=== PATIENT | male | born 1975 | race Caucasian/White ===

== ENCOUNTER 2017-02-23 16:05 | Observation (INO) ==
[2017-02-23] MEDS: dilTIAZem HCl 100 MG in D5% in Water 50 ML IVC SCH (19:00)
[2017-02-23] MEDS ORDERED: 0.9 % Sodium Chloride 500 ML ONE (21:16)
[2017-02-23] MEDS ORDERED: Naloxone 0.4 MG/ML INJ IVP PRN (21:17)
[2017-02-23] MEDS ORDERED: Acetaminophen 325 MG TABLET PO PRN (21:17)
[2017-02-23] MEDS ORDERED: Ondansetron 4 MG/2 ML VIAL IVP PRN (21:17)
[2017-02-23 21:58] LABS: Activated Partial Thrombo Time 112.8 Seconds (26.0-36.0)
[2017-02-23 22:33] LABS: Heparin anti-factor XA UFH 0.66 IU/mL (0.30-0.70)
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
[2017-02-23] MEDS ORDERED: *HR* Heparin 5,000 UNIT/ML VIAL IVP PRN ×2 (22:43)
[2017-02-23] MEDS ORDERED: Heparin 25,000 UNIT/500 ML D5W 25,000 UNIT/500 ML BAG IVC SCH (22:45)
[2017-02-23 23:21] LABS: INR 1.1; Prothrombin Time 11.3 Seconds (9.4-12.1)
[2017-02-24] MEDS: dilTIAZem HCl 100 MG in D5% in Water 50 ML IVC SCH (03:19)
[2017-02-24 06:03] LABS: Hemoglobin A1C 5.1 %
[2017-02-24 06:06] LABS: Basophils # 0.1 K/mcL (0.0-0.2); Basophils % 0.7 %; Eosinophils # 0.3 K/mcL (0.0-0.6); Eosinophils % 3.6 %; Hematocrit 42.1 % (37.5-50.1); Hemoglobin 14.1 g/dL (12.9-16.9); Immature Granulocytes % 0.3 % (0-4); Lymphocytes # 3.5 K/mcL (0.6-4.6); Lymphocytes % 47.9 %; Mean Corpuscular HGB Conc 33.5 g/dL (31.6-35.5); Mean Corpuscular Hemoglobin 29.8 pg (28.0-33.3); Mean Platelet Volume 10.8 fL (9.4-12.4); Monocytes # 0.6 K/mcL (0.0-1.3); Monocytes % 7.8 %; Neutrophils # 2.9 K/mcL (1.6-8.9); Platelet Count 201 K/mcL (140-400); Red Blood Count 4.73 M/mcL (4.19-5.50); Segmented Neutrophils % 39.7 %
[2017-02-24 10:04] LABS: BUN/Creatinine Ratio 15 (6-26); Blood Urea Nitrogen 13 mg/dL (6-20); Carbon Dioxide 22 mEq/L (23-29); Chloride 106 mEq/L (98-107); Potassium 4.4 mEq/L (3.5-5.1); Sodium 136 mEq/L (136-145); eGFR For African Americans > 60 (> 60)
[2017-02-24 10:05] LABS: Alanine Aminotransferase 23 Units/L (7-52); Albumin 3.8 g/dL (3.5-5.7); Albumin/Globulin Ratio 1.5 (1.1-2.2); Alkaline Phosphatase 60 Units/L (34-104); Aspartate Amino Transferase 23 Units/L (13-39); Bilirubin,Total 0.5 mg/dL (0.3-1.0); Calcium 8.7 mg/dL (8.6-10.3); Chol/HDL Ratio 6.3 (0-4.9); Cholesterol 238 mg/dL (< 200); Globulin 2.5 g/dL (2.4-3.5); Glucose 97 mg/dL (70-105); HDL Cholesterol 38 mg/dL (40-59); LDL Cholesterol,Calculated 167 mg/dL (0-99); Magnesium 2.1 mg/dL (1.6-2.6); Osmolality,Calculated 282 (280-300); Total Protein 6.3 g/dL (6.4-8.9); Triglycerides 164 mg/dL (< 150); eGFR For Non-African Americans > 60 (> 60)
[2017-02-24 11:40] VITALS: BP 129/82
[2017-02-24] MEDS ORDERED: Diltiazem CD (24hr) 120 MG CAPSULE PO SCH (12:45)
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
[2017-02-25] MEDS ORDERED: Aspirin 81 MG TAB.CHEW PO SCH (09:00)
== END 2017-02-24 15:51 | disposition home or self-care (01) | DRG 201 ==
LOC: 2NNU 17:24 → INTOOBSV 17:24
PROVIDERS: ADMIT Internal Medicine; ATTEND Internal Medicine

== ENCOUNTER 2017-03-10 17:37 | Inpatient (IN) ==
[2017-03-10] MEDS ORDERED: Naloxone 0.4 MG/ML INJ IVP PRN (22:54)
[2017-03-10] MEDS ORDERED: Acetaminophen 325 MG TABLET PO PRN (22:54)
--- NOTE | 2017-03-10 23:17 | Internal Med History&Physical ---
Date of Encounter: 03/10/17 Time of Encounter: 21:00 Assessment and Plan (1) Atrial fibrillation with RVR Current visit: Yes Status: Acute Pt has Hx of A Fib/A Flutter, he was seen by cardiology on 02/24/17 on last hospitalization, note reviewed. - Hr is well controlled now on cardizem drip, still A Fib. Pt is asymptomatic. Cont cardizem drip, switch to po in AM. - Pt said he was scheduled to see EP as outpatient by the end of this month. - Cont cardiac monitoring. - K 3.8, Mg 2.1. Will repeat K, Mg, and check TSH in AM - CHADS-VASC2 score 0, on ASA for CVA prophylaxis. (2) DVT prophylaxis Current visit: No Status: Acute Pt is young and ambulating well. No AC placed Internal Medicine - H&P: HPI Chief complaint: Increased HR Admitted From: Home Plans for Post Hospital Care: Home History of present illness: Mr. Das is a 41 year old male with Hx of A Fib transferred from [facility] for A Fib RVR. Pt found tachycardia when he measure BP at home. Denies feeling of palpitation. Pt denies CP, SOB, Abd pain, nausea/vomiting, diarrhea. He denies fever, cough, or runny nose. Pt has similiar condition and was admitted in our hospital about 2 wks ago. Past Med Surg Social Fam HX - Past Medical History Medical history: atrial fibrillation Psychiatric history: no psych history - Past Surgical History Surgical History: orthopedic, other, other - Social History Smoking Status: Former smoker Smokeless Tobacco Status: No Alcohol use: occasionally Drug use: none - Family History Father Family Member Ethnicity: Non- Living Status: Still Living Hx Family Cardiac Disorders: Yes (HTN, HLD) Mother Family Member Ethnicity: Non- Living Status: Hx Family Cardiac Disorders: Yes (Multiple strokes, HTN) Brother Family Member Ethnicity: Non- Living Status: Still Living Hx Family HEENT Disorders: Yes (Occular blindness in one eye) Sister Family Member Ethnicity: Non- Living Status: Still Living Internal Medicine - H&P: Meds Aspirin 81 mg PO DAILY #30 tab.chew 02/24/17 [Rx] Diltiazem CD (24hr) [Cardizem CD] 220 mg PO DAILY 03/10/17 [History] 3 Allergy/AdvReac Type Severity Reaction Status Date / Time No Known Allergies Allergy Verified 02/23/17 14:09 All Systems PM: A 10-system review of systems was performed and is negative for pertinent findings except as documented above in the HPI. - Constitutional Vitals: Temp Pulse Resp BP Pulse Ox 98.4 F 81 15 119/81 95 03/10/17 19:36 03/10/17 19:36 03/10/17 19:36 03/10/17 19:36 03/10/17 19:36 General appearance: Present: A&O X 3, no acute distress, answers questions appropriately - Head Head exam: Present: atraumatic, normocephalic - Eye Eye exam: Present: PERRL, conjuntiva pink, sclera anicteric Pupils: Present: PERRL - Neck Neck exam general surgery: Present: supple, trachea midline. Absent: lymphadenopathy - Respiratory Respiratory exam: Present: CTAB. Absent: accessory muscle use, rales, rhonchi, wheezes - Cardiovascular Cardiovascular exam: Present: irregular rhythm, +S1, +S2. Absent: diastolic murmur, gallop, rubs, systolic murmur - GI/Abdominal GI/Abdominal exam: Present: normal bowel sounds, soft, no peritoneal signs. Absent: distended, tenderness - Extremities Exam Extremities exam: Present: warm, radial pulses palpable and symmetrical. Absent : calf tenderness, cyanotic, pedal edema - Neurological Exam Neurological exam: Present: CN II-XII intact, oriented X3, no focal deficits. Absent: pronater drift, facial droop, speech deficit - Skin Skin exam: Present: dry, intact
[2017-03-10] MEDS: dilTIAZem HCl 100 MG in D5% in Water 50 ML IVC SCH (23:45)
[2017-03-11 04:09] LABS: Basophils % 0.6 %; Eosinophils # 0.2 K/mcL (0.0-0.6); Eosinophils % 2.3 %; Hematocrit 42.3 % (37.5-50.1); Hemoglobin 13.7 g/dL (12.9-16.9); Immature Granulocytes % 0.3 % (0-4); Lymphocytes # 3.1 K/mcL (0.6-4.6); Lymphocytes % 48.2 %; Mean Corpuscular HGB Conc 32.4 g/dL (31.6-35.5); Mean Corpuscular Volume 89.6 fL (83.0-100.0); Monocytes # 0.5 K/mcL (0.0-1.3); Monocytes % 7.2 %; Neutrophils # 2.7 K/mcL (1.6-8.9); Platelet Count 230 K/mcL (140-400); Red Blood Count 4.72 M/mcL (4.19-5.50); Segmented Neutrophils % 41.4 %
[2017-03-11] MEDS: dilTIAZem HCl 100 MG in D5% in Water 50 ML IVC SCH (04:36)
[2017-03-11 05:04] LABS: BUN/Creatinine Ratio 19 (6-26); Blood Urea Nitrogen 18 mg/dL (6-20); Calcium 9.1 mg/dL (8.6-10.3); Carbon Dioxide 23 mEq/L (23-29); Chloride 107 mEq/L (98-107); Glucose 96 mg/dL (70-105); Magnesium 2.2 mg/dL (1.6-2.6); Osmolality,Calculated 288 (280-300); Potassium 3.9 mEq/L (3.5-5.1); Sodium 138 mEq/L (136-145); eGFR For African Americans > 60 (> 60); eGFR For Non-African Americans > 60 (> 60)
[2017-03-11] MEDS: Aspirin 81 MG TAB.CHEW PO SCH (08:18)
[2017-03-11] MEDS ORDERED: Diltiazem CD (24hr) 120 MG CAPSULE PO SCH (09:00)
--- NOTE | 2017-03-11 12:15 | Internal Med Progress Note ---
Date of Encounter: 03/11/17 Time of Encounter: 12:15 - Assessment and plan (1) Atrial fibrillation with RVR Current Visit: Yes Status: Acute Assessment and plan: Rate continues to fluctuated between 80s-120s received cardizem 240mg PO (increased from his home dose of cardizem 120mg PO qd) will closely monitor and restart cardizem gtt if needed CHADVASC: 0, ASA for anticoagulation Cardiology consultation requested (2) DVT prophylaxis Current Visit: No Status: Acute Assessment and plan: early ambulation - Subjective Interval history: Patient seen and examined at bedside. Resting in bed and denies any discomfort. Currently off cardizem gtt, HR fluctuating between 80-120. Pt noted to be on Cardizem 120mg PO qd, increased to Cardizem 240mg PO qd, states he has an outpatient appt scheduled with EP later this month. Will follow up with cardiology - Constitutional Vitals: Temp Pulse Resp BP Pulse Ox 97.5 F L 96 16 104/93 100 03/11/17 11:27 03/11/17 11:27 03/11/17 11:27 03/11/17 11:27 03/11/17 11:27 General appearance: Present: A&O X 3, no acute distress, answers questions appropriately - Head Head exam: Present: atraumatic, normocephalic - Eye Eye exam: Present: conjuntiva pink, sclera anicteric - Respiratory Respiratory exam: Present: CTAB. Absent: respiratory distress, wheezes - Cardiovascular Cardiovascular exam: Present: irregular rhythm, +S1, +S2. Absent: diastolic murmur, systolic murmur - GI/Abdominal GI/Abdominal exam: Present: normal bowel sounds, soft, no peritoneal signs. Absent: distended, tenderness - Extremities Exam Extremities exam: Present: warm, radial pulses palpable and symmetrical. Absent : calf tenderness, cyanotic, pedal edema - Neurological Exam Neurological exam: Present: alert, oriented X3 Internal Medicine: Result - Labs CBC & Chem 7: 03/11/17 02:51 03/11/17 02:51 Labs: Short CBC 03/11/17 Range/Units 02:51 WBC 6.5 (4.3-11.1) K/mcL Hgb 13.7 (12.9-16.9) g/dL Hct 42.3 (37.5-50.1) % Plt Count 230 (140-400) K/mcL Neutrophils # 2.7 (1.6-8.9) K/mcL BMP 03/11/17 02:51 Sodium 138 Potassium 3.9 Chloride 107 Carbon Dioxide 23 BUN 18 Creatinine 0.96 Glucose 96 Calcium 9.1 Consult Discharge Plan - Plan Referrals: Ernestine Larios CNP [Primary Care Provider] - Andry Casanova CNP [Family Provider] -
--- NOTE | 2017-03-11 12:48 | Cardiology Consult Note ---
Date of Encounter: 03/11/17 Time of Encounter: 12:44 Assessment and Plan (1) Atrial fibrillation with RVR Current Visit: Yes Status: Acute Recurrent atrial fibrillation with RVR. Seen to have atrial flutter previously. Currently on cardizem 240 mg daily. HR 90-120 bpm. TTE 02/24/18-LVEF 60%. Normal LV chamber size, wall thickness and function. Normal left ventricular diastolic function. Normal right ventricular structure and function. No evidence of pulmonary hypertension. No significant valvular dysfunction Rate control verses rhythm control discussed. Patient reassurance given. I will discuss further with Dr. West. Discussion w patient/family: The assessment and plan as outlined above was discussed with the patient and/or family members who expressed understanding and agreement. All questions were answered. Thank you for involving us in the care of your patient. Please call with any questions. History of Present Illness Consult date: 03/11/17 Requesting physician: Judit Nascimento Consult reason: recurrent afib with RVR Chief complaint: elevated heart rates History of present illness: Mr. Das is a 41 year old male who presented from home when he found his heart rate to be elevated in the 120-130's on his home b/p cuff. Denies significant symptoms to me. He was found to be in atrial fibrillation with RVR and started on cardizem gtt. He was seen 02/24/17 for new onset atrial flutter per documentation. He converted to NSR and was started on cardizem CD 120 mg daily and asa. One week later he noticed elevated heart rates and went to [facility] ED. His cardizem was increased to 240 mg daily and he was discharged home. He says he was doing well for a couple days then noticed his HR elevate again. He reports he is frustrated with recurrent hospital visits. He is scheduled to see our package sorter, Dr. Axel Thosmon, 03/28/17. Past Med Surg Social Fam HX - Past Medical History Medical history: atrial fibrillation Psychiatric history: no psych history - Past Surgical History Surgical History: orthopedic, other, other - Social History Smoking Status: Former smoker Smokeless Tobacco Status: No Alcohol use: occasionally Drug use: none - Family History Father Family Member Ethnicity: Non- Living Status: Still Living Hx Family Cardiac Disorders: Yes (HTN, HLD) Mother Family Member Ethnicity: Non- Living Status: Hx Family Cardiac Disorders: Yes (Multiple strokes, HTN) Brother Family Member Ethnicity: Non- Living Status: Still Living Hx Family HEENT Disorders: Yes (Occular blindness in one eye) Sister Family Member Ethnicity: Non- Living Status: Still Living Medications and Allergies Aspirin 81 mg PO DAILY #30 tab.chew 02/24/17 [Rx] Diltiazem CD (24hr) [Cardizem CD] 240 mg PO DAILY 03/11/17 [History] 3 Allergy/AdvReac Type Severity Reaction Status Date / Time No Known Allergies Allergy Verified 02/23/17 14:09 All Systems Review: A 10-system review of systems was performed and is negative for pertinent findings except as documented above in the HPI. Physical Examination Vital Signs, Last 4 Hours Temp Pulse Resp BP Pulse Ox 03/11/17 11:27 97.5 F L 96 16 104/93 100 General: Conversant, No Apparent Distress HEENT: Atraumatic, Normocephaly, Mucus Membranes Moist Neck: No JVD, Normal carotid pulses Cardiac: Other (irregularly irregular) Lungs: Normal Breath Sounds, No Wheeze, Rales, Rhonchi Neuro: Alert and responsive, No focal deficits noted Abdomen: Soft, Non-Tender Skin: No rashes noted on visualized skin Musculoskeletal: No Chest Wall Tenderness Extremities: No Clubbing, No Cyanosis, No Edema, Normal Pulses Results 03/11/17 02:51 03/11/17 02:51 Lab Results 03/11/17 03/11/17 03/11/17 02:51 02:51 02:51 WBC 6.5 Hgb 13.7 Hct 42.3 Plt Count 230 Sodium 138 Potassium 3.9 Chloride 107 Carbon Dioxide 23 BUN 18 Creatinine 0.96 Glucose 96 Calcium 9.1 Magnesium 2.2 TSH 2.047 - Imaging and Cardiology Echo: report reviewed - EKG Interpretation EKG results cardiology: personally reviewed Consult Discharge Plan - Plan Referrals: Ernestine Larios CNP [Primary Care Provider] - Andry Casanova CNP [Family Provider] -
[2017-03-11] MEDS ORDERED: Diltiazem SR (12hr) 60 MG CAPSULE PO ONE (15:00)
[2017-03-12] MEDS: dilTIAZem HCl 100 MG in D5% in Water 50 ML IVC SCH (03:36)
[2017-03-12] MEDS: Aspirin 81 MG TAB.CHEW PO SCH (10:32)
[2017-03-12] MEDS: Diltiazem CD (24hr) 120 MG CAPSULE PO SCH (10:32)
--- NOTE | 2017-03-12 11:17 | Cardiology Progress Note ---
Date of Encounter: 03/12/17 Time of Encounter: 11:14 Assessment and Plan (1) Atrial fibrillation with RVR Current Visit: Yes Status: Acute Atrial fibrillation with RVR. Seen to have atrial flutter previously. Cardizem increased to 360 mg daily. No significant improvement in HR. Discussed with Dr. West, recommends starting rhythmol therapy at 225 mg q8HR. Stress test recommended d/t afib and starting anti-arrhythmic. TTE 02/24/18-LVEF 60%. Normal LV chamber size, wall thickness and function. Normal left ventricular diastolic function. Normal right ventricular structure and function. No evidence of pulmonary hypertension. No significant valvular dysfunction AC with coumadin vs NOAC discussed. Agreeable to NOAC. WIll nieves check. Start lovenox 1mg/kg. Will need five monitored doses of rhythmol. Check EKG every morning. If he does not convert we will plan for JOSE ROBERTO/DCCV. Patient agrees with plan. Discussion w patient/family: The assessment and plan as outlined above was discussed with the patient and/or family members who expressed understanding and agreement. All questions were answered. Thank you for involving us in the care of your patient. Please call with any questions. Objective HR 112 General: Conversant, No Apparent Distress HEENT: Atraumatic, Normocephaly, Mucus Membranes Moist Neck: No JVD, Normal carotid pulses Cardiac: Other (irregular) Lungs: Normal Breath Sounds, No Wheeze, Rales, Rhonchi Neuro: Alert and responsive, No focal deficits noted Abdomen: Soft, Non-Tender Skin: No rashes noted on visualized skin Musculoskeletal: No Chest Wall Tenderness Extremities: No Clubbing, No Cyanosis, No Edema, Normal Pulses Results 03/11/17 02:51 03/11/17 02:51 - EKG Interpretation EKG results cardiology: personally reviewed Consult Discharge Plan - Plan Referrals: Ernestine Larios CNP [Primary Care Provider] - Andry Casanova CNP [Family Provider] -
--- NOTE | 2017-03-12 14:31 | Internal Med Progress Note ---
Date of Encounter: 03/12/17 Time of Encounter: 13:10 - Assessment and plan (1) Atrial fibrillation with RVR Current Visit: Yes Status: Acute Assessment and plan: rate currently controlled however noted to have AFib with RVR overnight start rhythmol anticoagulated with Lovenox 100mg SQ q12h scheduled for stress test in am continue cardizem Cardiology consultation appreciated (2) DVT prophylaxis Current Visit: No Status: Acute Assessment and plan: lovenox SQ - Subjective Interval history: Pt seen and examined with family present at bedside. Currently rate controlled on PO cardizem however noted to go back in Afib with RVR, HR in 150s requiring cardizem gtt. Cardiology follow up appreciated. Pt to be started on rhythmol and nuclear stress test in am. - Constitutional Vitals: Temp Pulse Resp BP Pulse Ox 98.1 F 84 16 119/78 97 03/12/17 06:43 03/12/17 06:43 03/12/17 06:43 03/12/17 06:43 03/12/17 06:43 General appearance: Present: A&O X 3, no acute distress, answers questions appropriately - Head Head exam: Present: atraumatic - Eye Eye exam: Present: conjuntiva pink, sclera anicteric - Respiratory Respiratory exam: Present: CTAB. Absent: accessory muscle use, rales, rhonchi, wheezes - Cardiovascular Cardiovascular exam: Present: irregular rhythm, +S1, +S2. Absent: diastolic murmur, systolic murmur - GI/Abdominal GI/Abdominal exam: Present: normal bowel sounds, soft, no peritoneal signs. Absent: distended, tenderness - Extremities Exam Extremities exam: Present: warm, radial pulses palpable and symmetrical. Absent : calf tenderness, cyanotic, pedal edema - Neurological Exam Neurological exam: Present: alert, oriented X3 Internal Medicine: Result - Labs CBC & Chem 7: 03/11/17 02:51 03/11/17 02:51 Consult Discharge Plan - Plan Referrals: Ernestine Larios CNP [Primary Care Provider] - Andry Casanova CNP [Family Provider] - Prescriptions: Rivaroxaban [Xarelto] 20 mg PO DAILY #30 tablet
[2017-03-12] MEDS: *HR* Enoxaparin 100 MG/ML SYRINGE SQ SCH (17:11)
[2017-03-13 03:36] LABS: Basophils # 0.1 K/mcL (0.0-0.2); Basophils % 0.8 %; Eosinophils # 0.2 K/mcL (0.0-0.6); Eosinophils % 2.6 %; Hematocrit 44.8 % (37.5-50.1); Immature Granulocytes % 0.6 % (0-4); Immature Platelets 6.1 % (1.1-6.1); Lymphocytes % 48.1 %; Mean Corpuscular HGB Conc 34.2 g/dL (31.6-35.5); Mean Corpuscular Hemoglobin 30.2 pg (28.0-33.3); Mean Corpuscular Volume 88.5 fL (83.0-100.0); Mean Platelet Volume 11.2 fL (9.4-12.4); Monocytes # 0.5 K/mcL (0.0-1.3); Monocytes % 6.7 %; Neutrophils # 3.2 K/mcL (1.6-8.9); Platelet Count 221 K/mcL (140-400); Red Blood Count 5.06 M/mcL (4.19-5.50); Red Cell Distribution Width 12.9 % (11.5-14.5); Segmented Neutrophils % 41.2 %
[2017-03-13 03:48] LABS: Hemoglobin 15.3 g/dL (12.9-16.9); Lymphocytes # 3.8 K/mcL (0.6-4.6)
[2017-03-13 04:08] LABS: BUN/Creatinine Ratio 24 (6-26); Blood Urea Nitrogen 24 mg/dL (6-20); Calcium 9.1 mg/dL (8.6-10.3); Carbon Dioxide 22 mEq/L (23-29); Chloride 106 mEq/L (98-107); Glucose 109 mg/dL (70-105); Magnesium 2.2 mg/dL (1.6-2.6); Osmolality,Calculated 285 (280-300); Sodium 135 mEq/L (136-145); eGFR For African Americans > 60 (> 60); eGFR For Non-African Americans > 60 (> 60)
[2017-03-13 04:09] LABS: Anisocytosis 1+ (Not Present); Phosphorous 4.2 mg/dL (2.7-4.5); Poikilocytosis 1+ (Not Present)
[2017-03-13 04:10] LABS: Platelet Estimate Normal (Normal)
[2017-03-13] MEDS ORDERED: Regadenoson 0.4 MG/5 ML SYRINGE IVP ONE (06:32)
[2017-03-13] MEDS: *HR* Enoxaparin 100 MG/ML SYRINGE SQ SCH (06:33)
--- NOTE | 2017-03-13 09:28 | Electrocardiograph Report ---
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
[2017-03-13] MEDS: Diltiazem CD (24hr) 120 MG CAPSULE PO SCH (09:30)
[2017-03-13] MEDS: Aspirin 81 MG TAB.CHEW PO SCH (09:30)
--- NOTE | 2017-03-13 11:01 | Cardiology Progress Note ---
Date of Encounter: 03/13/17 Time of Encounter: 09:00 Assessment and Plan (1) Atrial fibrillation with RVR Current Visit: Yes Status: Acute Appeared to be atrial fibrillation with RVR on admit. Now rate controlled atrial flutter. Seen to have atrial flutter previous admission. Cardizem increased to 360 mg daily. Rythmol 225 mg q8hr started. S/p 3 doses. Stress test was negative for ischemia. TTE 02/24/18-LVEF 60%. Normal LV chamber size, wall thickness and function. Normal left ventricular diastolic function. Normal right ventricular structure and function. No evidence of pulmonary hypertension. No significant valvular dysfunction AC with coumadin vs NOAC discussed. Agreeable to NOAC. Xarelto started. No co- pay per patient's pharmacy. Will need five monitored doses of rythmol. Check EKG every morning. If he does not convert we will plan for JOSE ROBERTO/DCCV in am. Patient agrees with plan. EK03/12/16 atrial flutter , HR 68bpm, QT/QTC 391/408, QRS 104 03/13/16 atrial flutter, HR 68, QT/QTc 382/416, QRS 88. (2) Atrial flutter Current Visit: No Status: Acute Qualifiers: Atrial flutter type: unspecified Qualified Code(s): I48.92 - Unspecified atrial flutter Discussion w patient/family: The assessment and plan as outlined above was discussed with the patient and/or family members who expressed understanding and agreement. All questions were answered. Thank you for involving us in the care of your patient. Please call with any questions. Subjective Principal diagnosis: tachycardia Interval history: No new complaints. Continues to deny palpitations or chest pain. S/p stress test this morning. Objective Vital Signs, Last 4 Hours Pulse Resp BP 03/13/17 09:33 91 114/76 03/13/17 07:00 90 18 109/78 General: Conversant, No Apparent Distress HEENT: Atraumatic, Normocephaly, Mucus Membranes Moist Neck: No JVD, Normal carotid pulses Cardiac: Other (Irregular) Lungs: Normal Breath Sounds, No Wheeze, Rales, Rhonchi Neuro: Alert and responsive, No focal deficits noted Abdomen: Soft, Non-Tender Skin: No rashes noted on visualized skin Musculoskeletal: No Chest Wall Tenderness Extremities: No Clubbing, No Cyanosis, No Edema, Normal Pulses Results 03/13/17 02:49 03/13/17 02:49 Lab Results 03/13/17 03/13/17 02:49 02:49 WBC 7.8 Hgb 15.3 D Hct 44.8 Plt Count 221 Sodium 135 L Potassium 4.0 Chloride 106 Carbon Dioxide 22 L BUN 24 H Creatinine 1.00 Glucose 109 H Calcium 9.1 Magnesium 2.2 - Imaging and Cardiology Stress Test: report reviewed Echo: report reviewed - EKG Interpretation EKG results cardiology: personally reviewed Consult Discharge Plan - Plan Referrals: Ernestine Larios CNP [Primary Care Provider] - Andry Casanova CNP [Family Provider] - Prescriptions: Rivaroxaban [Xarelto] 20 mg PO DAILY #30 tablet
--- NOTE | 2017-03-13 12:42 | Electrocardiograph Report ---
[place] [id number] Test Date: 2017-03-12 Pat Name: Karl Das Department: 111 Room: 2NE20 Gender: M Clinical Outcomes Manager: [id number] : 1975 Requested By: Judit Nascimento Order Number: [id number] Reading MD: Arturo West MD Measurements Intervals [place] Rate: 68 P: NM: 0 QRS: 39 QRSD: 104 T: 48 QT: 391 QTc: 408 Interpretive Statements ATRIAL FLUTTER WITH VARIABLE CONDUCTION Electronically Signed On 03-13-2017 12:40:48 EST by Arturo West MD
--- NOTE | 2017-03-13 13:02 | Internal Med Progress Note ---
Date of Encounter: 03/13/17 Time of Encounter: 13:01 - Assessment and plan (1) Atrial fibrillation with RVR Current Visit: Yes Status: Acute Assessment and plan: rate currently controlled however noted to have AFib with RVR overnight continue rhythmol anticoagulated with xarelto s/p stress test: negative for ischmic perfusion defect Cardiology consultation appreciated (2) DVT prophylaxis Current Visit: No Status: Acute Assessment and plan: on xarelto - Subjective Interval history: Pt seen and examined with family present at bedside. denies any discomfort remains to have aflutter d/april cardizem, continue rhythmol s/p stress test tentative cardioversion in am if rhythm does not convert cardiology on board - Constitutional Vitals: Temp Pulse Resp BP Pulse Ox 97.8 F 73 18 118/73 96 03/13/17 00:28 03/13/17 11:44 03/13/17 11:44 03/13/17 11:44 03/13/17 04:37 General appearance: Present: A&O X 3, no acute distress, answers questions appropriately - Head Head exam: Present: atraumatic, normocephalic - Eye Eye exam: Present: conjuntiva pink, sclera anicteric - Respiratory Respiratory exam: Present: CTAB. Absent: respiratory distress, wheezes - Cardiovascular Cardiovascular exam: Present: irregular rhythm, +S1, +S2 - GI/Abdominal GI/Abdominal exam: Present: normal bowel sounds, soft, no peritoneal signs. Absent: distended, tenderness - Extremities Exam Extremities exam: Present: warm, radial pulses palpable and symmetrical. Absent : calf tenderness, cyanotic, pedal edema - Neurological Exam Neurological exam: Present: alert, oriented X3 Internal Medicine: Result - Labs CBC & Chem 7: 03/13/17 02:49 03/13/17 02:49 Labs: Short CBC 03/13/17 Range/Units 02:49 WBC 7.8 (4.3-11.1) K/mcL Hgb 15.3 D (12.9-16.9) g/dL Hct 44.8 (37.5-50.1) % Plt Count 221 (140-400) K/mcL Neutrophils # 3.2 (1.6-8.9) K/mcL BMP 03/13/17 02:49 Sodium 135 L Potassium 4.0 Chloride 106 Carbon Dioxide 22 L BUN 24 H Creatinine 1.00 Glucose 109 H Calcium 9.1 Consult Discharge Plan - Plan Referrals: Ernestine Larios CNP [Primary Care Provider] - Andry Casanova CNP [Family Provider] - Prescriptions: Rivaroxaban [Xarelto] 20 mg PO DAILY #30 tablet
[2017-03-13] MEDS ORDERED: *HR* Rivaroxaban 10 MG TABLET PO SCH (17:00)
[2017-03-14 05:10] LABS: BUN/Creatinine Ratio 17 (6-26); Blood Urea Nitrogen 17 mg/dL (6-20); Calcium 8.9 mg/dL (8.6-10.3); Carbon Dioxide 23 mEq/L (23-29); Chloride 108 mEq/L (98-107); Glucose 117 mg/dL (70-105); Osmolality,Calculated 287 (280-300); Phosphorous 3.8 mg/dL (2.7-4.5); Sodium 137 mEq/L (136-145); eGFR For African Americans > 60 (> 60); eGFR For Non-African Americans > 60 (> 60)
[2017-03-14] MEDS: Aspirin 81 MG TAB.CHEW PO SCH (10:01)
[2017-03-14] MEDS: Diltiazem CD (24hr) 120 MG CAPSULE PO SCH (10:02)
[2017-03-14] MEDS ORDERED: 0.9 % Sodium Chloride 500 ML IVC ONE (10:07)
[2017-03-14] MEDS ORDERED: Tetracaine/Benzocaine/Butamben 200MG/SPRAY (100SPY/BOT) MM ONE (10:07)
[2017-03-14] MEDS ORDERED: Lidocaine Viscous Oral Soln 15 ML SOLUTION MM PRN (10:07)
[2017-03-14 10:40] VITALS: BP 138/100
[2017-03-14] MEDS: *HR* Midazolam HCl 5 MG/5 ML VIAL IVP PRN ×5 (11:15→11:41)
[2017-03-14] MEDS: *HR* FentaNYL (PF) 100 MCG/2 ML VIAL IVP PRN ×4 (11:15→11:33)
--- NOTE | 2017-03-14 11:35 | Internal Med Progress Note ---
Date of Encounter: 03/14/17 Time of Encounter: 11:33 - Assessment and plan (1) Atrial flutter Current Visit: No Status: Acute Assessment and plan: Plans are for JOSE ROBERTO with cardioversion. Continue with anticoagulation with xarelto. Continue with Rythmol and Cardizem. The patient is also on aspirin. Likely DC in the morning if remains in sinus. Qualifiers: Atrial flutter type: unspecified Qualified Code(s): I48.92 - Unspecified atrial flutter (2) DVT prophylaxis Current Visit: No Status: Acute Assessment and plan: on xarelto - Subjective Interval history: No acute events. The patient remains in A. fib flutter. He denies palpitations. Denies chest pain. Cardiology is following. Afebrile. - Constitutional Vitals: Temp Pulse Resp BP Pulse Ox 97.9 F 100 12 138/100 98 03/14/17 10:35 03/14/17 10:35 03/14/17 10:35 03/14/17 10:35 03/14/17 10:35 General appearance: Present: A&O X 3, no acute distress, answers questions appropriately Exam: GEN: NAD CVS: Irregular S1, S2, No m/r/g RESP: CTAB ABD: Soft, NT, ND, +BS EXT: No edema. 2+ DP. No rashes NEURO: Nonfocal Internal Medicine: Result - Labs CBC & Chem 7: 03/13/17 02:49 03/14/17 03:36 Labs: BMP 03/14/17 03:36 Sodium 137 Potassium 4.0 Chloride 108 H Carbon Dioxide 23 BUN 17 Creatinine 1.02 Glucose 117 H Calcium 8.9 Consult Discharge Plan - Plan Referrals: Ernestine Larios CNP [Primary Care Provider] - 03/21/17 12:30 pm
--- NOTE | 2017-03-14 12:44 | Event Note ---
Date of Encounter: 03/14/17 Time of Encounter: 12:35 - Cardiology Event Note S/p succesful JOSE ROBERTO/DCCV. Converted from atrial flutter to NSR. EKG today showed normal QT/QTc. Now NSR with PAC. Ok for d/c home from cardiology standpoint after recovery period later this afternoon. Continue rythmol and xarelto for AC. Xarelto was priced check. I will also sent RX for rythmol. It was noted that patient SPO2 decreases when he sleeps. Recommended to have sleep study in out-pt setting. F/u is already scheduled 03/28/[address] Axel Thomson. Call with questions.
--- NOTE | 2017-03-14 13:29 | Discharge Summary ---
Date of Encounter: 03/14/17 Time of Encounter: 13:27 - Discharge Diagnosis (1) Atrial flutter Priority: Primary Status: Acute Qualifiers: Atrial flutter type: unspecified Qualified Code(s): I48.92 - Unspecified atrial flutter - Discharge Medications Prescriptions: Propafenone [Rhythmol] 225 mg PO Q8HR #90 tablet Diltiazem CD (24hr) [Cardizem CD] 360 mg PO DAILY #30 cap.er.24h Home Medications: Aspirin 81 mg PO DAILY #30 tab.chew 02/24/17 [Rx] Rivaroxaban [Xarelto] 20 mg PO DAILY #30 tablet 03/12/17 [Rx] Diltiazem CD (24hr) [Cardizem CD] 360 mg PO DAILY #30 cap.er.24h 03/14/17 [Rx] Propafenone [Rhythmol] 225 mg PO Q8HR #90 tablet 03/14/17 [Rx] Allergies/Adverse Reactions: 3 Allergy/AdvReac Type Severity Reaction Status Date / Time No Known Allergies Allergy Verified 02/23/17 14:09 Procedures/tests Complete & Pending: Procedures Performed prior 72 hours Category Date Time Status NM jaswinder perf SPECT multi [NM] Routine Exams 03/12/17 07:33 Taken ECG 12 lead ECG [ECG] Routine Y 03/12/17 19:53 Completed ECG 12 lead ECG [ECG] Routine Y 03/14/17 11:48 Completed EKG [ECG 12 lead ECG] [ECG] AM 0600 Y 03/13/17 06:00 Completed EKG [ECG 12 lead ECG] [ECG] AM 0600 Y 03/14/17 06:00 Completed EKG [ECG 12 lead ECG] [ECG] AM 0600 Y 03/15/17 06:00 Ordered EKG [ECG 12 lead ECG] [ECG] Stat Y 03/14/17 09:57 Completed EV keanu guided cardioversion Routine Y 03/14/17 09:09 Completed SP pharm nuclear stress Routine Y 03/12/17 07:32 Completed Date of admission: 03/13/17 18:09 Primary care physician: Ernestine Larios Consults: 03/11/17 08:02 Consult to Cardiology [CONS] Routine Comment: Consulting Provider: Cardiology Nitza Reason for Consult: afib with RVR requiring cardizem gtt, needs EP evaluation Call Completed: Yes - Patient Status Disposition: Home, Self-Care Condition: Fair Overall status at discharge: patient is back to baseline - Discharge Instructions Instructions: Diltiazem (By mouth), Propafenone (By mouth), Atrial Fibrillation (DC), Cardioversion (DC), Cardioversion (GEN) Follow Up With: Axel Thomson MD [Partnered Physician] - 03/28/17 10:00 am (2 weeks ) Ernestine Larios CNP [Primary Care Provider] - 03/21/17 12:30 pm - Diet and Activity Activity: resume usual activities as tolerated Diet: regular diet Hospital course: Mr. Das is a 41 year old male with Hx of A Fib transferred from [facility] for A Fib/flutter with RVR. He was admitted to the hospitalist service with consult to cardiology. He had Rythmol added to his medications. He underwent a stress test in order to start that though is negative. His Cardizem was also uptitrated. He continued to be in a flutter and cardiology cardioverted him and he remained in sinus. He remains anticoagulated xarelto. He will follow up with cardiology in the outpatient setting. He was stable for discharge on 03/14/2017 - Time Spent with Patient Total time spent providing and/or coordinating discharge services: Greater than 30 minutes - Constitutional Vitals: Temp Pulse Resp BP Pulse Ox 97.9 F 100 12 138/100 98 03/14/17 10:35 03/14/17 10:35 03/14/17 10:35 03/14/17 10:35 03/14/17 10:35 General appearance: Present: A&O X 3, no acute distress, answers questions appropriately Exam: GEN: NAD CVS: RRR. S1, S2, No m/r/g RESP: CTAB ABD: Soft, NT, ND, +BS EXT: No edema. 2+ DP. No rashes NEURO: Nonfocal
--- NOTE | 2017-03-14 20:02 | Electrocardiograph Report ---
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
--- NOTE | 2017-03-14 20:03 | Electrocardiograph Report ---
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
--- NOTE | 2017-03-14 20:05 | Electrocardiograph Report ---
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
== END 2017-03-14 15:46 | disposition home or self-care (01) | DRG 201 ==
LOC: 2NENU → SUATTDRO 18:59
PROVIDERS: ADMIT Hospitalist; ATTEND Internal Medicine

== ENCOUNTER 2017-06-11 16:04 | Observation (INO) ==
[2017-06-11] MEDS ORDERED: Acetaminophen 325 MG TABLET PO PRN (20:32)
[2017-06-11] MEDS ORDERED: *HR* HYDROcodone/Acet 5/325 mg TABLET PO PRN (20:32)
[2017-06-11] MEDS ORDERED: *HR* Promethazine 25 MG/ML VIAL IVP PRN (20:32)
[2017-06-11] MEDS ORDERED: Naloxone 0.4 MG/ML INJ IVP PRN (20:32)
[2017-06-11] MEDS ORDERED: Ondansetron 4 MG/2 ML VIAL IVP PRN (20:32)
--- NOTE | 2017-06-11 20:43 | Internal Med History&Physical ---
Date of Encounter: 06/11/17 Time of Encounter: 20:30 Internal Medicine - H&P: HPI Chief complaint: Palpitations Admitted From: Emergency Dept Plans for Post Hospital Care: Home History of present illness: Mr. Das is a 41 year old male with known PMH of HTN, HLD and Paroxysmal Afib recently had cardiac ablation on 04/[address] Thomson , currently on Xarelto for anti coagulation who presented to [place] ER today c/o palpitations since this morning. Pt was in A fib with RVR so placed on Cardizem gtt there and transferred to our hospital for further eval. Now pt denied any CP / SOB. Denied any more palpations. He got converted to NSR on arrival to the floor. Past Med Surg Social Fam HX - Past Medical History Medical history: atrial fibrillation, hyperlipidemia, hypertension Psychiatric history: no psych history - Past Surgical History Surgical History: orthopedic, other, other - Social History Smoking Status: Former smoker Smokeless Tobacco Status: No Alcohol use: occasionally Drug use: none - Family History Father Family Member Ethnicity: Non- Living Status: Still Living Hx Family Cardiac Disorders: Yes (HTN, HLD) Mother Family Member Ethnicity: Non- Living Status: Hx Family Cardiac Disorders: Yes (Multiple strokes, HTN) Brother Family Member Ethnicity: Non- Living Status: Still Living Hx Family HEENT Disorders: Yes (Occular blindness in one eye) Sister Family Member Ethnicity: Non- Living Status: Still Living Internal Medicine - H&P: Meds Aspirin 81 mg PO DAILY #30 tab.chew 02/24/17 [Rx] Rivaroxaban [Xarelto] 20 mg PO DAILY #30 tablet 03/12/17 [Rx] Diltiazem CD (24hr) [Cardizem CD] 360 mg PO DAILY #30 cap.er.24h 03/14/17 [Rx] Propafenone [Rhythmol] 225 mg PO Q8HR #90 tablet 03/14/17 [Rx] Docusate [Colace] 100 mg PO DAILY 04/25/17 [History] Metoprolol [Lopressor] 25 mg PO BID 04/25/17 [History] 3 Allergy/AdvReac Type Severity Reaction Status Date / Time No Known Allergies Allergy Verified 02/23/17 14:09 All Systems PM: A 10-system review of systems was performed and is negative for pertinent findings except as documented above in the HPI. Review of systems: All the systems are reviewed everything is benign except the systems and symptoms I mentioned in the history of present illness - Constitutional Vitals: Temp Pulse Resp BP Pulse Ox 97.6 F 70 16 154/94 97 06/11/17 18:22 06/11/17 18:22 06/11/17 18:22 06/11/17 18:22 06/11/17 18:22 General appearance: Present: A&O X 3, no acute distress, answers questions appropriately - Head Head exam: Present: atraumatic, normal inspection - Neck Neck exam general surgery: Present: supple - Respiratory Respiratory exam: Present: decreased breath sounds. Absent: rales, respiratory distress, rhonchi, wheezes - Cardiovascular Cardiovascular exam: Present: RRR, +S1, +S2. Absent: systolic murmur, tachycardia - GI/Abdominal GI/Abdominal exam: Present: normal bowel sounds, soft. Absent: rebound, rigid, tenderness - Extremities Exam Extremities exam: Absent: calf tenderness, pedal edema, tenderness - Back Exam Back exam: Absent: CVA tenderness (L), CVA tenderness (R) - Neurological Exam Neurological exam: Present: alert, oriented X3 - Psychiatric Psychiatric exam: Present: normal affect, normal mood - Assessment and plan (1) Atrial fibrillation with RVR Current Visit: No Status: Acute Assessment and plan: place the pt into Tele for observation converted to NSR already will get an EKG now d/c Cardizem gtt continue home PO dose Cardizem also resumed home Rythmol Cont Xarelto for anti coag will check serial trop to r/o any ACS monitor electrolytes closely [place] [facility] attending already talked our director [employer] Dr. Brantley (2) HTN (hypertension) Current Visit: Yes Status: Acute Assessment and plan: stable with home meds resumed all home meds Qualifiers: Hypertension type: essential hypertension Qualified Code(s): I10 - Essential (primary) hypertension (3) Hyperlipidemia Current Visit: No Status: Acute Assessment and plan: on statin will check FLP in AM Qualifiers: Hyperlipidemia type: mixed hyperlipidemia Qualified Code(s): E78.2 - Mixed hyperlipidemia - Time Spent With Patient Total time spent is greater than 50% in coordination of care (as documented) at patient's floor/unit and/or counseling patient:
[2017-06-12 07:03] VITALS: BP 122/72
[2017-06-12] MEDS ORDERED: Aspirin 81 MG TAB.CHEW PO SCH (09:00)
[2017-06-12] MEDS ORDERED: Diltiazem CD (24hr) 180 MG CAPSULE PO SCH (09:00)
[2017-06-12] MEDS ORDERED: *HR* Rivaroxaban 10 MG TABLET PO SCH (09:00)
--- NOTE | 2017-06-14 00:19 | Electrocardiograph Report ---
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
== END 2017-06-12 09:13 | disposition left against medical advice (07) ==
LOC: 2ANU
PROVIDERS: ADMIT Internal Medicine; ATTEND Internal Medicine

== ENCOUNTER 2017-08-21 07:13 | Observation (INO) ==
[2017-08-21] MEDS ORDERED: ISOVUE-370 200 ML INFUS..BTL IV ONE (07:39)
[2017-08-21] MEDS ORDERED: Heparin 1,000 UNITS/500 mL 500 ML ONE (07:39)
[2017-08-21] MEDS ORDERED: 0.9 % Sodium Chloride 1,000 ML ONE ×2 (07:39→09:29)
[2017-08-21] MEDS ORDERED: *HR* Heparin 10,000 UNIT/10 ML VIAL ONE ×2 (07:39→07:41)
[2017-08-21] MEDS ORDERED: Heparin 1,000 UNITS/500 mL 1,000 ML ONE (07:41)
--- NOTE | 2017-08-21 07:43 | Anesthesia Evaluation PreOp ---
Date of Encounter: 08/21/17 Time of Encounter: 07:41 - Past History Planned Operation: Cryoablation Cardiac History: HTN, Hyperlipidemia, Arrhythmia (PAF, had ablation 04/23. Recent PAF with SVT on 06/21) Pulmonary History: Former smoker POURER BULL LADLE History: Denies Any Significant HX Other Medical History: Denies Any Significant HX Anesthesia History: Past Anesthesia (knee scope, ablation), Problems (PONV) Alcohol Use: occasionally Drug use: none Medications and Allergies Aspirin 81 mg PO DAILY #30 tab.chew 02/24/17 [Rx] Rivaroxaban [Xarelto] 20 mg PO DAILY #30 tablet 03/12/17 [Rx] Diltiazem CD (24hr) [Cardizem CD] 360 mg PO DAILY #30 cap.er.24h 03/14/17 [Rx] Docusate [Colace] 100 mg PO DAILY 04/25/17 [History] Metoprolol [Lopressor] 25 mg PO BID 04/25/17 [History] Fenofibrate Nanocrystallized [Tricor] 48 mg PO DAILY 07/08/17 [History] Propafenone [Rhythmol] 1 tab PO Q8HR 07/17/17 [History] 3 Allergy/AdvReac Type Severity Reaction Status Date / Time No Known Allergies Allergy Verified 07/08/17 14:33 - Meds/Allergy Pre-op Review Medications Reviewed: Yes Allergies Reviewed: Yes Beta Blockers on Current Med List: Yes Anesthesia Results - Labs Laboratory Tests 08/07/17 08/07/17 08/07/17 08:56 08:56 08:56 Hgb 16.6 Hct 48.7 Plt Count 217 PT 14.7 H INR 1.4 APTT 42.7 H Sodium 138 Potassium 4.3 BUN 18 Creatinine 1.10 - Imaging EKG: report reviewed (SINUS RHYTHM WITH OCCASIONAL SUPRAVENTRICULAR PREMATURE COMPLEXES POSSIBLE LEFT ATRIAL ENLARGEMENT INCOMPLETE RIGHT BUNDLE BRANCH BLOCK NONSPECIFIC T-WAVE ABNORMALITY) Additional studies: stress test: Impression: Perfusion imaging was negative for ischemia or infarct. Pharmacologic stress ECG is non diagnostic for ischemia due to baseline non-specific ST and T changes. Gated EF = 59%. echo: Impressions: LVEF 60%. Normal LV chamber size, wall thickness and function. Normal left ventricular diastolic function. Normal right ventricular structure and function. No evidence of pulmonary hypertension. No significant valvular dysfunction. Anesthesia Exam - HEENT Pupil (Motor): EOMI Mallampati: II Teeth: Normal Oral Opening: Greater than 3 - POURER BULL LADLE LOC: Oriented POURER BULL LADLE Motor: Normal RUE, Normal LUE, Normal RLE, Normal LLE, Normal Face POURER BULL LADLE Sensory: Normal: RUE, LUE, RLE, LLE, Face - Cardiac Rhythm: Regular Murmur: None - Pulmonary Breath Sounds: bilateral Clear Respiratory Effort: Symmetrical Anesthesia Assess/Plan ASA Score: 3 Modified Tay Scale for Level of Consciousness: Cooperative, oriented, and tranquil Anesthetic Plan: General Monitoring Plan: Standard Monitors Recovery Plan: Other (Patient agrees to GA)
[2017-08-21] MEDS ORDERED: Scopolamine Patch 1.5 MG PATCH.TD72 TD ONE (07:57)
--- NOTE | 2017-08-21 08:50 | Electrophysiology H & P ---
Date of Encounter: 08/21/17 Time of Encounter: 08:45 Assessment and Plan (1) Atrial flutter Current Visit: No Status: Acute The assessment and plan as outlined above was discussed with the patient and/or family members who expressed understanding and agreement. All questions were answered. Qualifiers: Atrial flutter type: unspecified Qualified Code(s): I48.92 - Unspecified atrial flutter (2) Atrial fibrillation with RVR Current Visit: No Status: Acute The assessment and plan as outlined above was discussed with the patient and/or family members who expressed understanding and agreement. All questions were answered. Recurent AF, despite antiarrythmic and atrial flutter ablation. He is symptomatic. We discussed risks and benefits of cryoablation for AF and he agreed to proceed. History of Present Illness Chief complaint: Palpitations HPI: Mr. Das is a 42 year old male with history of AFL and AF. He is S/P ablation for atrial flutter but has had recurrent atrial fibrillation since. We discussed the risks and benefits of cry AF ablation. He agreed to proceed. Past Med Surg Social Fam HX - Past Medical History Medical history: atrial fibrillation, hyperlipidemia, hypertension Additional medical history: CARDIOVERSION X 2 Psychiatric history: no psych history - Past Surgical History Surgical History: orthopedic, other, other Additional surgical history: OPEN HEART 1994. LEFT KNEE. Ablation - Social History Smoking Status: Former smoker Smokeless Tobacco Status: No Alcohol use: occasionally Drug use: none - Family History Father Family Member Ethnicity: Non- Living Status: Still Living Hx Family Cardiac Disorders: Yes (HTN, HLD) Mother Family Member Ethnicity: Non- Living Status: Hx Family Cardiac Disorders: Yes (Multiple strokes, HTN) Brother Family Member Ethnicity: Non- Living Status: Still Living Hx Family HEENT Disorders: Yes (Occular blindness in one eye) Sister Family Member Ethnicity: Non- Living Status: Still Living Medications and Allergies Aspirin 81 mg PO DAILY #30 tab.chew 02/24/17 [Rx] Rivaroxaban [Xarelto] 20 mg PO DAILY #30 tablet 03/12/17 [Rx] Diltiazem CD (24hr) [Cardizem CD] 360 mg PO DAILY #30 cap.er.24h 03/14/17 [Rx] Docusate [Colace] 100 mg PO DAILY 04/25/17 [History] Metoprolol [Lopressor] 25 mg PO BID 04/25/17 [History] Fenofibrate Nanocrystallized [Tricor] 48 mg PO DAILY 07/08/17 [History] Propafenone [Rhythmol] 1 tab PO Q8HR 07/17/17 [History] 3 Allergy/AdvReac Type Severity Reaction Status Date / Time No Known Allergies Allergy Verified 07/08/17 14:33 All Systems Review: The remainder of the systems were reviewed and are negative Physical Examination Vital Signs, Last 4 Hours Temp Pulse Resp BP Pulse Ox 08/21/17 07:31 97.6 F 79 18 118/81 97 General: Conversant, No Apparent Distress HEENT: Atraumatic, Normocephaly, Mucus Membranes Moist Neck: No JVD, Normal carotid pulses Cardiac: Reg Rate and Rhythm, Normal S1 and S2, No Murmur Lungs: Normal Breath Sounds, No Wheeze, Rales, Rhonchi Neuro: Alert and responsive, No focal deficits noted Abdomen: Soft, Non-Tender Skin: No rashes noted on visualized skin Extremities: No Clubbing, No Cyanosis, No Edema, Normal Pulses
[2017-08-21] MEDS ORDERED: *HR* FentaNYL (PF) 100 MCG/2 ML VIAL ONE (09:12)
[2017-08-21] MEDS ORDERED: *HR* Midazolam HCl 2 MG/2 ML VIAL ONE (09:12)
--- NOTE | 2017-08-21 10:05 | Electrocardiograph Report ---
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
[2017-08-21] MEDS ORDERED: Protamine Sulfate 50 MG/5 ML VIAL IVP ONE (11:43)
[2017-08-21] MEDS ORDERED: Naloxone 0.4 MG/ML INJ IVP PRN (11:50)
[2017-08-21] MEDS ORDERED: *HR* Propofol 200 MG/20 ML VIAL IVP ONE (12:30)
[2017-08-21] MEDS ORDERED: Ondansetron 4 MG/2 ML VIAL IVP ONE (12:30)
[2017-08-21] MEDS ORDERED: *HR* Phenylephrine 10 MG/ML VIAL IVC ONE (12:30)
[2017-08-21] MEDS ORDERED: EPHEDrine 50 MG/ML VIAL IVP ONE (12:30)
[2017-08-21] MEDS ORDERED: *HR* Succinylcholine 200 MG/10 ML VIAL IVP ONE (12:30)
[2017-08-21] MEDS: 0.9 % Sodium Chloride 1,000 ML IVC SCH (13:24)
[2017-08-22] MEDS: 0.9 % Sodium Chloride 1,000 ML IVC SCH (05:48)
--- NOTE | 2017-08-22 06:37 | Electrocardiograph Report ---
[address] [address] Test Date: 2017-08-21 Pat Name: Karl Das Department: 109 Room: [facility] Gender: M Fulfillment Representative: : 1975 Requested By: Axel Thomson Order Number: [id number] Reading MD: Arturo West Measurements Intervals [place] Rate: 68 P: 46 TN: 186 QRS: 15 QRSD: 105 T: 42 QT: 431 QTc: 447 Interpretive Statements SINUS RHYTHM Electronically Signed On 08-22-2017 6:36:26 EDT by Arturo West
[2017-08-22 08:13] VITALS: BP 124/77
--- NOTE | 2017-08-22 08:54 | Discharge Summary ---
Date of Encounter: 08/22/17 Time of Encounter: 08:50 - Discharge Diagnosis (1) PAF (paroxysmal atrial fibrillation) Priority: Primary Status: Chronic Comments: Recurent AF, despite antiarrythmic and atrial flutter ablation. - Hospital Course Hospital course: Mr. Das is a 42 year old male seen by Dr. Axel Thomson in outpatient setting June 2017 and underwent cryoablation for paroxysmal atrial fibrillation on . Patient stable today and prepping for discharge home. Denies any new concerns or complaints overnight. Discussed and reviewed with Dr. Axel Thomson, no medication changes recommended. Remains on Channel Kelli, Beta Kelli, Rythmol, and Xarelto. Follow-up arranged. All questions answered. - Time Spent with Patient Total time spent providing and/or coordinating discharge services: Less than 30 minutes - Discharge Medications Home Medications: Aspirin 81 mg PO DAILY #30 tab.chew 02/24/17 [Rx] Rivaroxaban [Xarelto] 20 mg PO DAILY #30 tablet 03/12/17 [Rx] Diltiazem CD (24hr) [Cardizem CD] 360 mg PO DAILY #30 cap.er.24h 03/14/17 [Rx] Docusate [Colace] 100 mg PO DAILY 04/25/17 [History] Metoprolol [Lopressor] 25 mg PO BID 04/25/17 [History] Propafenone [Rhythmol] 1 tab PO Q8HR 07/17/17 [History] Fenofibrate [Tricor] 54 mg PO DAILY 08/22/17 [History] Allergies/Adverse Reactions: 3 Allergy/AdvReac Type Severity Reaction Status Date / Time No Known Allergies Allergy Verified 08/22/17 09:16 Date of admission: 08/21/17 12:29 Primary care physician: Blanca Meneses MD Consults: none Discharging clinician: Brendan Virk Anticipated date of discharge: 08/22/17 Physical Examination Vital Signs, Last 4 Hours Pulse Resp BP Pulse Ox 08/22/17 08:09 80 18 124/77 98 08/22/17 05:45 77 22 94 General: Conversant, No Apparent Distress HEENT: Atraumatic, Normocephaly, Mucus Membranes Moist Neck: No JVD, Normal carotid pulses Cardiac: Reg Rate and Rhythm, Normal S1 and S2, No Murmur Lungs: Normal Breath Sounds, No Wheeze, Rales, Rhonchi Neuro: Alert and responsive, No focal deficits noted Abdomen: Soft, Non-Tender Skin: No rashes noted on visualized skin, Other (Bilateral groin sites dry and intact with no hematoma, no bleeding, very mild ecchymosis to left groin site) Musculoskeletal: No Chest Wall Tenderness Extremities: No Clubbing, No Cyanosis, No Edema, Normal Pulses - Patient Status Disposition: Home, Self-Care Condition: Good Functional capacity at discharge: independent ambulation Overall status at discharge: patient is progressing back to baseline - Discharge Instructions Follow Up With: Blanca Meneses MD [Primary Care Provider] - Andry Csaanova CNP [Family Provider] - - Diet and Activity Diet: advance to your usual diet - VTE Reasons for not Prescribing Prophylaxis: Medical contraindication
[2017-08-22] MEDS ORDERED: *HR* Rivaroxaban 10 MG TABLET PO SCH (09:00)
[2017-08-22] MEDS ORDERED: Diltiazem CD (24hr) 180 MG CAPSULE PO SCH (09:00)
[2017-08-22] MEDS ORDERED: Aspirin 81 MG TAB.CHEW PO SCH (09:00)
[2017-08-22] MEDS ORDERED: Fenofibrate 54 MG TABLET PO SCH (09:00)
== END 2017-08-22 09:31 | disposition home or self-care (01) ==
LOC: ICNU 07:13 → INVDIALAB 07:13 → ICNU 12:28
PROVIDERS: ADMIT Internal Medicine Clinical Cardiac Electrophysiology; ATTEND Internal Medicine Clinical Cardiac Electrophysiology

== ENCOUNTER 2017-09-06 19:24 | Inpatient (IN) ==
--- NOTE | 2017-09-06 21:49 | Internal Med History&Physical ---
Date of Encounter: 09/06/17 Time of Encounter: 21:46 Internal Medicine - H&P: HPI Chief complaint: Palpitation A. fib with RVR and low blood pressure Admitted From: Hospital to Hospital Transfer Plans for Post Hospital Care: Home History of present illness: Mr. Das is a 42 year old male with history of uncontrolled A. fib on 3 rate controlled medication and general to with recent cryoablation by Dr. Thomson was transferred from [facility] with A. fib RVR in low blood pressure. Cardizem drip was restarted but blood pressure started to drop down therefore IV fluid is started and blood pressure became normal. Patient is states that today morning he felt dizzy with palpitations in his heart rate was in 140s and low blood pressure systolic and 40s therefore he got concerned and decided to come to [facility]. Initial lab in [facility] CBC BMP with no acute finding. No EKG available in the report. Patient denies fever or chills nausea vomiting headache chest pain shortness of breath abdominal pain urinary or bowel complaint. He has intermittent palpitations and lightheadedness when he get up. Past Med Surg Social Fam HX - Past Medical History Medical history: atrial fibrillation, hyperlipidemia, hypertension Additional medical history: CARDIOVERSION X 2 Psychiatric history: no psych history - Past Surgical History Surgical History: orthopedic, other, other Additional surgical history: OPEN HEART 1994. LEFT KNEE. Ablation - Social History Smoking Status: Light tobacco smoker Smokeless Tobacco Status: No Alcohol use: occasionally Drug use: none - Family History Father Family Member Ethnicity: Non- Living Status: Still Living Hx Family Cardiac Disorders: Yes (HTN, HLD) Mother Family Member Ethnicity: Non- Living Status: Hx Family Cardiac Disorders: Yes (Multiple strokes, HTN) Brother Family Member Ethnicity: Non- Living Status: Still Living Hx Family HEENT Disorders: Yes (Occular blindness in one eye) Sister Family Member Ethnicity: Non- Living Status: Still Living Internal Medicine - H&P: Meds Aspirin 81 mg PO DAILY #30 tab.chew 02/24/17 [Rx] Rivaroxaban [Xarelto] 20 mg PO DAILY #30 tablet 03/12/17 [Rx] Diltiazem CD (24hr) [Cardizem CD] 360 mg PO DAILY #30 cap.er.24h 01/09/18 [Rx] Docusate [Colace] 100 mg PO DAILY 04/25/17 [History] Metoprolol [Lopressor] 25 mg PO BID 04/25/17 [History] Propafenone [Rhythmol] 1 tab PO Q8HR 07/17/17 [History] Fenofibrate [Tricor] 54 mg PO DAILY 08/22/17 [History] 3 Allergy/AdvReac Type Severity Reaction Status Date / Time No Known Allergies Allergy Verified 09/06/17 17:32 All Systems PM: A 10-system review of systems was performed and is negative for pertinent findings except as documented above in the HPI. - Constitutional Vitals: Temp Pulse Resp BP Pulse Ox 97.9 F 129 16 100/84 96 09/06/17 21:12 09/06/17 21:12 09/06/17 21:12 09/06/17 21:12 09/06/17 21:12 Exam: General appearance: No acute distress, A&O X 3 Head exam: Atraumatic Eye exam: EOMI, PERRLA ENT exam: Moist oral mucosa Neck nontender, supple Respiratory exam: Clear to auscultation bilaterally Cardiovascular exam: A. fib with RVR, no systolic murmur Abdominal exam: Soft, nontender, nondistended, positive bowel sounds Extremities exam: No calf tenderness, no pedal edema Present: Skin- warm, dry, intact Neurological exam: Alert, awake, oriented 3, CN II-XII intact, no focal deficits. No facial droop. Normal speech. Motor 5 x 5 in all 4 extremities - Assessment and plan (1) Atrial fibrillation with RVR Current Visit: No Status: Acute Assessment and plan: Recurrent A. fib. Patient already on Cardizem, metoprolol, propafenone and xarelto Is status post cryosurgery [address] Thomson. Patient was transferred from [facility] while on Cardizem drip. Will continue Cardizem drip titrating as needed. Patient also has low blood pressure therefore will not be very aggressive in controlling heart rate. At present heart rate varied from 100 -120 and that is acceptable while keeping his blood pressure reasonably controlled. Continue home medicine except Cardizem oral as patient on Cardizem drip. Echocardiogram, TSH, serial troponin, telemetry bed, consulted cardiologists and talked with Dr. Thomson on phone and discussed the treatment plan who is okay to continue home medicine along with Cardizem drip. IV fluid normal saline 75 mL per hour for now. (2) HTN (hypertension) Current Visit: No Status: Acute Assessment and plan: Low normal at this time. Close monitoring. Continue home medicine Qualifiers: Hypertension type: essential hypertension Qualified Code(s): I10 - Essential (primary) hypertension (3) Hyperlipidemia Current Visit: No Status: Acute Assessment and plan: Continue home medicine, fasting lipid profile ordered Qualifiers: Hyperlipidemia type: mixed hyperlipidemia Qualified Code(s): E78.2 - Mixed hyperlipidemia (4) DVT prophylaxis Current Visit: No Status: Acute Assessment and plan: Patient already on xarelto - Time Spent With Patient Total time spent is greater than 50% in coordination of care (as documented) at patient's floor/unit and/or counseling patient: 25 - 35 minutes
[2017-09-06] MEDS ORDERED: Naloxone 0.4 MG/ML INJ IVP PRN (21:57)
[2017-09-06 22:45] LABS: INR 1.1; Prothrombin Time 12.7 Seconds (9.4-12.1)
[2017-09-06 22:47] LABS: Activated Partial Thrombo Time 37.7 Seconds (26.0-36.0)
[2017-09-06 22:58] LABS: Magnesium 2.1 mg/dL (1.6-2.6)
[2017-09-06 22:59] LABS: Troponin I < 0.03 ng/mL (< 0.04)
[2017-09-06] MEDS: 0.9 % Sodium Chloride 1,000 ML IVC SCH (23:03)
[2017-09-06 23:13] LABS: Thyroid Stimulating Hormone 2.279 mcIU/mL (0.340-5.600)
[2017-09-07 04:58] LABS: Basophils # 0.1 K/mcL (0.0-0.2); Basophils % 0.6 %; Eosinophils # 0.2 K/mcL (0.0-0.6); Hematocrit 44.6 % (37.5-50.1); Hemoglobin 15.5 g/dL (12.9-16.9); Immature Granulocytes % 0.5 % (0-4); Lymphocytes # 3.5 K/mcL (0.6-4.6); Lymphocytes % 41.8 %; Mean Corpuscular HGB Conc 34.8 g/dL (31.6-35.5); Mean Corpuscular Hemoglobin 30.7 pg (28.0-33.3); Mean Corpuscular Volume 88.3 fL (83.0-100.0); Mean Platelet Volume 10.3 fL (9.4-12.4); Monocytes # 0.6 K/mcL (0.0-1.3); Monocytes % 6.8 %; Neutrophils # 4.1 K/mcL (1.6-8.9); Platelet Count 201 K/mcL (140-400); Red Blood Count 5.05 M/mcL (4.19-5.50); Segmented Neutrophils % 48.3 %
[2017-09-07 05:18] LABS: BUN/Creatinine Ratio 16 (6-26); Blood Urea Nitrogen 15 mg/dL (6-20); Calcium 8.9 mg/dL (8.6-10.3); Carbon Dioxide 23 mEq/L (23-29); Chloride 111 mEq/L (98-107); Cholesterol 216 mg/dL (< 200); Glucose 96 mg/dL (70-105); HDL Cholesterol 31 mg/dL (40-59); LDL Cholesterol,Calculated 127 mg/dL (0-99); Osmolality,Calculated 287 (280-300); Sodium 138 mEq/L (136-145); Triglycerides 289 mg/dL (< 150); Troponin I < 0.03 ng/mL (< 0.04); eGFR For African Americans > 60 (> 60); eGFR For Non-African Americans > 60 (> 60)
[2017-09-07] MEDS: Aspirin 81 MG TAB.CHEW PO SCH (08:02)
[2017-09-07] MEDS: Fenofibrate 54 MG TABLET PO SCH (08:02)
[2017-09-07] MEDS: *HR* Rivaroxaban 10 MG TABLET PO SCH (08:02)
--- NOTE | 2017-09-07 10:16 | Cardiology Consult Note ---
<Adamaris Barrios - Last Filed: 09/07/17 10:14> Date of Encounter: 09/07/17 Time of Encounter: 09:30 Assessment and Plan (1) Atrial flutter Current Visit: No Status: Acute Per cardiology: -Known a.flutter/fib s/o cryo ablation 08/22/[address]John Thomson. -Presented with high HR and fatigue. -A.flutter RVR noted on admission. -Average HR 116. -Currently on rhythmol 150Q8 hours, lopressor 25mg BID, and cardizem drip at 10mg/hour. -On xarelto for anticoagulation. -Discussed and reviewed with Dr.John Thomson, will increase rhythmol to 225mg Q8 hours. -ECG in am. -WIll make NPO after midnight for possible DCCV in am. -Will continue to monitor. Qualifiers: Atrial flutter type: unspecified Qualified Code(s): I48.92 - Unspecified atrial flutter (2) Fatigue Current Visit: Yes Status: Acute Per cardiology: -Reports fatigue when in atrial flutter. -PLan to increase anti-arrythmics. -Will continue to monitor. Qualifiers: Fatigue type: unspecified Qualified Code(s): R53.83 - Other fatigue Discussion w patient/family: The assessment and plan as outlined above was discussed with the patient and/or family members who expressed understanding and agreement. All questions were answered. Thank you for involving us in the care of your patient. Please call with any questions. Discussed and reviewed with Dr.John Thomson. History of Present Illness Consult date: 09/06/17 Requesting physician: Paula Welsh Consult reason: a.flutter RVR Chief complaint: high HR History of present illness: Mr. Das is a 42 year old male with a relevant past medical history of a.flutter/fib s/p ablation 08/22/17, previous tobacco abuse, HTN, HLD who presented to [facility] with complaints of high HRs. Patient also reported fatigue, dizziness upon standing. Patient denies chest pain, shortness of breath, palpitations or fluttering. Patient states he knows he is in a.fib/flutter when he becomes fatigued. Past Med Surg Social Fam HX - Past Medical History Attestation: Yes The following information was validated with the patient. Source: patient, old records reviewed, obtained from family Medical history: atrial fibrillation, hyperlipidemia, hypertension Additional medical history: CARDIOVERSION X 2 Psychiatric history: no psych history - Past Surgical History Surgical History: orthopedic, other, other Additional surgical history: OPEN HEART 1994. LEFT KNEE. Ablation - Social History Smoking Status: Light tobacco smoker Smokeless Tobacco Status: No Alcohol use: occasionally Drug use: none - Family History Father Family Member Ethnicity: Non- Living Status: Still Living Hx Family Cardiac Disorders: Yes (HTN, HLD) Mother Family Member Ethnicity: Non- Living Status: Hx Family Cardiac Disorders: Yes (Multiple strokes, HTN) Brother Family Member Ethnicity: Non- Living Status: Still Living Hx Family HEENT Disorders: Yes (Occular blindness in one eye) Sister Family Member Ethnicity: Non- Living Status: Still Living Medications and Allergies Aspirin 81 mg PO DAILY #30 tab.chew 02/24/17 [Rx] Rivaroxaban [Xarelto] 20 mg PO DAILY #30 tablet 03/12/17 [Rx] Diltiazem CD (24hr) [Cardizem CD] 360 mg PO DAILY #30 cap.er.24h 03/14/17 [Rx] Docusate [Colace] 100 mg PO BID 04/25/17 [History] Propafenone [Rhythmol] 1 tab PO Q8HR 07/17/17 [History] Fenofibrate [Tricor] 54 mg PO DAILY 08/22/17 [History] Garlic [Daily Garlic Once-A-Day] 400 mg PO DAILY 09/07/17 [History] Magnesium Oxide [Magnesium] 400 mg PO DAILY 09/07/17 [History] Metoprolol Tartrate [Lopressor] 50 mg PO BID 09/07/17 [History] Psyllium Husk [Metamucil] 17 gm PO DAILY PRN 09/07/17 [History] 3 Allergy/AdvReac Type Severity Reaction Status Date / Time No Known Allergies Allergy Verified 09/07/17 08:37 All Systems Review: The remainder of the systems were reviewed and are negative - Constitutional Constitutional: fatigue - Cardiovascular Cardiovascular: as per HPI, rapid heart rate Physical Examination Vital Signs, Last 4 Hours Pulse Resp BP Pulse Ox 09/07/17 06:39 131 18 98/79 97 General: Conversant, No Apparent Distress HEENT: Atraumatic, Normocephaly, Mucus Membranes Moist Neck: No JVD, Normal carotid pulses Cardiac: Normal S1 and S2, No Murmur, Other (Regularly irregular. ) Lungs: Normal Breath Sounds, No Wheeze, Rales, Rhonchi Neuro: Alert and responsive, No focal deficits noted Abdomen: Soft, Non-Tender Skin: No rashes noted on visualized skin Musculoskeletal: No Chest Wall Tenderness Extremities: No Clubbing, No Cyanosis, No Edema, Normal Pulses Results 09/07/17 04:39 09/07/17 04:39 Lab Results Active Medications Aspirin (Aspirin) 81 mg PO DAILY [facility] Stop: 03/09/18 09:01 Last Admin: 09/07/17 08:02 Dose: 81 mg Docusate Sodium (Colace) 100 mg PO DAILY [facility] PRN Reason: Protocol Stop: 03/09/18 09:01 Last Admin: 09/07/17 08:02 Dose: 100 mg Fenofibrate (Tricor) 54 mg PO DAILY [facility] PRN Reason: Protocol Stop: 03/09/18 09:01 Last Admin: 09/07/17 08:02 Dose: 54 mg Sodium Chloride (0.9 % Sodium Chloride) 1,000 mls @ 75 mls/hr IVC .[id number] [facility] Stop: 09/08/17 00:39 Last Admin: 09/06/17 23:03 Dose: 75 mls/hr Diltiazem HCl 50 mg/ Sodium (Chloride) 50 mls @ 7.5 mls/hr IVC .[id number] [facility] PRN Reason: 7.5 MG/HR Stop: 03/08/18 22:01 Last Admin: 09/07/17 04:41 Dose: 10 mg/hr, 10 mls/hr Metoprolol Tartrate (Lopressor) 25 mg PO BID [facility] Stop: 03/08/18 22:16 Last Admin: 09/07/17 08:02 Dose: 25 mg Naloxone HCl (Narcan) 0.4 mg IVP Q2MIN PRN PRN Reason: SEE COMMENTS Stop: 03/08/18 21:58 Propafenone HCl (Rhythmol) 225 mg PO Q8HR [facility] Stop: 03/09/18 16:01 Rivaroxaban (Xarelto) 20 mg PO DAILY [facility] Stop: 01/04/19 09:01 Last Admin: 09/07/17 08:02 Dose: 20 mg Laboratory Tests 09/06/17 09/07/17 09/07/17 22:25 04:39 04:39 Hgb 15.5 Potassium 4.0 Creatinine 0.92 Magnesium 2.1 Troponin I < 0.03 < 0.03 TSH 2.279 - Imaging and Cardiology Chest Xray: report reviewed Stress Test: report reviewed Echo: report reviewed - EKG Interpretation EKG results cardiology: personally reviewed (ECG with atrial flutter RVR, HR 116.), other (Telemetry reviewed with average HR previous 12 hours noted to be 116, a.flutter RVR.) Consult Discharge Plan - Plan Referrals: Blanca Meneses MD [Primary Care Provider] - <Axel Thomson - Last Filed: 09/08/17 09:06> Date of Encounter: 09/08/17 - Attending Attestation I have personally performed a face to face evaluation on this patient. I have reviewed and agree with the care plan. History and Exam by me shows: Recurrent AF/ AFL S/P AFL ablation and AF ablation recently Would increase rythmol and plan cardioverson tomorrow if necessary. Assessment and Plan Discussion w patient/family: The assessment and plan as outlined above was discussed with the patient and/or family members who expressed understanding and agreement. All questions were answered. Thank you for involving us in the care of your patient. Please call with any questions. History of Present Illness History of present illness: Mr. aDs is a 42 year old male All Systems Review: The remainder of the systems were reviewed and are negative Physical Examination Vital Signs, Last 4 Hours Temp Pulse Resp BP 09/07/17 10:33 97.8 F 118 20 104/81 Results 09/07/17 04:39 09/07/17 04:39 Lab Results 09/06/17 09/06/17 09/07/17 22:25 22:25 04:39 WBC 8.4 Hgb 15.5 Hct 44.6 Plt Count 201 INR 1.1 APTT 37.7 H Sodium Potassium Chloride Carbon Dioxide BUN Creatinine Glucose Calcium Magnesium 2.1 Troponin I < 0.03 TSH 2.279 09/07/17 04:39 WBC Hgb Hct Plt Count INR APTT Sodium 138 Potassium 4.0 Chloride 111 H Carbon Dioxide 23 BUN 15 Creatinine 0.92 Glucose 96 Calcium 8.9 Magnesium Troponin I < 0.03 TSH
[2017-09-07] MEDS: 0.9 % Sodium Chloride 1,000 ML IVC SCH (13:11)
--- NOTE | 2017-09-07 19:05 | Internal Med Progress Note ---
Date of Encounter: 09/07/17 Time of Encounter: 10:30 - Assessment and plan (1) Atrial flutter Current Visit: No Status: Acute Assessment and plan: Per cardiology plan cardioversion. Continue monitor and rate control. Qualifiers: Atrial flutter type: typical Qualified Code(s): I48.3 - Typical atrial flutter (2) Hyperlipidemia Current Visit: No Status: Acute Assessment and plan: Continue home medicine, Qualifiers: Hyperlipidemia type: mixed hyperlipidemia Qualified Code(s): E78.2 - Mixed hyperlipidemia (3) HTN (hypertension) Current Visit: No Status: Acute Assessment and plan: BP stable low 100s now. Continue current management. Qualifiers: Hypertension type: essential hypertension Qualified Code(s): I10 - Essential (primary) hypertension (4) DVT prophylaxis Current Visit: No Status: Acute - Time Spent With Patient Total time spent is greater than 50% in coordination of care (as documented) at patient's floor/unit and/or counseling patient: - Subjective Interval history: Mr Das is currently admitted for atrial flutter with rapid rate. He remains moderate to high risk due to potential for worsening clinical status. Mr Das is feeling OK. No fever or chills. Heart rate is high still. To have cardioversion per cardiology. - Constitutional Vitals: Temp Pulse Resp BP Pulse Ox 97.7 F 123 18 104/83 98 09/07/17 15:26 09/07/17 15:26 09/07/17 15:26 09/07/17 15:26 09/07/17 15:26 General appearance: Present: A&O X 3, pleasant, answers questions appropriately - Head Head exam: Present: normocephalic - Eye Eye exam: Present: EOMI, conjuntiva pink - ENT ENT exam: Present: mucous membranes dry - Respiratory Respiratory exam: Present: CTAB. Absent: rhonchi, wheezes - Cardiovascular Cardiovascular exam: Present: irregular rhythm, tachycardia - GI/Abdominal GI/Abdominal exam: Present: soft. Absent: tenderness - Extremities Exam Extremities exam: Present: warm. Absent: tenderness - Neurological Exam Neurological exam: Present: alert, oriented X3 - Skin Skin exam: Present: dry, warm Internal Medicine: Result - Labs CBC & Chem 7: 09/07/17 04:39 09/07/17 04:39 Labs: Short CBC 09/07/17 Range/Units 04:39 WBC 8.4 (4.3-11.1) K/mcL Hgb 15.5 (12.9-16.9) g/dL Hct 44.6 (37.5-50.1) % Plt Count 201 (140-400) K/mcL Neutrophils # 4.1 (1.6-8.9) K/mcL BMP 09/07/17 04:39 Sodium 138 Potassium 4.0 Chloride 111 H Carbon Dioxide 23 BUN 15 Creatinine 0.92 Glucose 96 Calcium 8.9 Cardiac Enzymes 09/06/17 09/07/17 Range/Units 22:25 04:39 Troponin I < 0.03 < 0.03 (< 0.04) ng/mL - ABG Interpretation ABG results: PT/INR, D-dimer PT 12.7 Seconds (9.4-12.1) H 09/06/17 22:25 Consult Discharge Plan - Plan Referrals: Blanca Meneses MD [Primary Care Provider] -
[2017-09-08] MEDS ORDERED: 0.9 % Sodium Chloride 250 ML IVC ONE ×2 (02:00→05:07)
[2017-09-08] MEDS: Aspirin 81 MG TAB.CHEW PO SCH (07:20)
[2017-09-08] MEDS: Fenofibrate 54 MG TABLET PO SCH (07:20)
[2017-09-08] MEDS: *HR* Rivaroxaban 10 MG TABLET PO SCH (09:54)
--- NOTE | 2017-09-08 10:08 | Internal Med Progress Note ---
<Kaleb Gimenez - Last Filed: 09/08/17 12:31> Date of Encounter: 09/08/17 Time of Encounter: 10:00 - Assessment and plan (1) Atrial flutter Current Visit: No Status: Acute Assessment and plan: -patient has a known Hx of atrial flutter , s/p cryo ablation about 3 weeks ago. He was noted to have A.flutter RVR on admission . - patient is currently on Rhythmol 150Q8 hours, lopressor 25mg BID, and Cardizem drip at 10mg /hr. His Rhythmol was increased to 225mg PO. He's on xarelto for anticoagulation (CHADS2 score = 1) - Cardiology might perform a possible DCCV this AM. - continue monitoring vitals, Is/Os. Qualifiers: Atrial flutter type: typical Qualified Code(s): I48.3 - Typical atrial flutter (2) HTN (hypertension) Current Visit: No Status: Acute Assessment and plan: -patient not currently hypertensive - continue current management and close monitoring of the vitals Qualifiers: Hypertension type: essential hypertension Qualified Code(s): I10 - Essential (primary) hypertension (3) Hyperlipidemia Current Visit: No Status: Chronic Assessment and plan: patient continues his home medications Qualifiers: Hyperlipidemia type: mixed hyperlipidemia Qualified Code(s): E78.2 - Mixed hyperlipidemia (4) DVT prophylaxis Current Visit: No Status: Acute Assessment and plan: -patient currently on 20 mg PO daily Xarelto - Time Spent With Patient Total time spent is greater than 50% in coordination of care (as documented) at patient's floor/unit and/or counseling patient: - Subjective Interval history: no acvute events overnight for Mr. Das. Patient is still in Afib on telemetry. As per the Cardiology recommendation, his Rythmol dose was increased to 225 q8h. Cardiology plans to take for possible DCCV in am. He was kept NPO - Constitutional Vitals: Temp Pulse Resp BP Pulse Ox 97.6 F 139 17 99/84 92 09/08/17 07:27 09/08/17 07:27 09/08/17 07:27 09/08/17 07:27 09/08/17 07:27 General appearance: Present: A&O X 3, pleasant, answers questions appropriately - Head Head exam: Present: atraumatic, normocephalic - ENT ENT exam: Present: normal exam - Respiratory Respiratory exam: Present: CTAB - Cardiovascular Additional comments: rapid heart rate - Neurological Exam Neurological exam: Present: oriented X3 - Psychiatric Additional comments: good mentation Internal Medicine: Result - Labs CBC & Chem 7: 09/07/17 04:39 09/07/17 04:39 - ABG Interpretation ABG results: PT/INR, D-dimer PT 12.7 Seconds (9.4-12.1) H 09/06/17 22:25 Consult Discharge Plan - Plan Instructions: Metoprolol (By mouth), Propafenone (By mouth), Atrial Flutter (DC ), Atrial Fibrillation (DC), Cardioversion (DC), Cardioversion (GEN), Chronic Hypertension (DC) Referrals: Blanca Meneses MD [Primary Care Provider] - 09/15/17 6:00 pm Alec Dinero DO [Partnered Physician] - (the office will call you with an appointment if they have not called you by next monday call then.) Prescriptions: Propafenone [Rhythmol] 225 mg PO Q8HR #90 tablet Metoprolol [Lopressor] 25 mg PO BID #60 tablet <Juan Wilde - Last Filed: 09/08/17 17:24> Date of Encounter: 09/08/17 - Assessment and plan (1) Atrial flutter Current Visit: No Status: Resolved Qualifiers: Atrial flutter type: typical Qualified Code(s): I48.3 - Typical atrial flutter (2) Hyperlipidemia Current Visit: No Status: Chronic Qualifiers: Hyperlipidemia type: mixed hyperlipidemia Qualified Code(s): E78.2 - Mixed hyperlipidemia (3) HTN (hypertension) Current Visit: No Status: Chronic Qualifiers: Hypertension type: essential hypertension Qualified Code(s): I10 - Essential (primary) hypertension (4) Tobacco abuse Current Visit: Yes Status: Chronic - Time Spent With Patient Total time spent is greater than 50% in coordination of care (as documented) at patient's floor/unit and/or counseling patient: - Constitutional Vitals: Temp Pulse Resp BP Pulse Ox 97.6 F 70 16 118/77 99 09/08/17 15:25 09/08/17 15:25 09/08/17 15:25 09/08/17 15:25 09/08/17 15:25 Internal Medicine: Result - Labs CBC & Chem 7: 09/07/17 04:39 09/07/17 04:39 - ABG Interpretation ABG results: PT/INR, D-dimer PT 12.7 Seconds (9.4-12.1) H 09/06/17 22:25 - Attending Attestation I examined this patient and my medical decision-making was reviewed with the Resident Physician on 09/08/17. I agree with the documented findings, disposition and treatment plan as described except to the extent set forth below. Please see discharge summary of this date.
[2017-09-08] MEDS ORDERED: *HR* Propofol 200 MG/20 ML VIAL IVP ONE (10:31)
[2017-09-08] MEDS ORDERED: *HR* Midazolam HCl 2 MG/2 ML VIAL IVP ONE (10:36)
[2017-09-08] MEDS ORDERED: *HR* FentaNYL (PF) 100 MCG/2 ML VIAL IVP ONE (10:36)
--- NOTE | 2017-09-08 10:42 | Event Note ---
Date of Encounter: 09/08/17 Time of Encounter: 09:30 - Cardiology Event Note ECG today with atrial flutter, HR 105, QRS 100ms (baseline QRS 95ms). PLan for DCCV today. Risks versus benefits of DCCV explained to patient and family, states understanding and agreeable to proceed. OF note, on xarelto for anticoagulation. Denies missed xarelto doses in the past 30 days. Further recommendations pending DCCV.
[2017-09-08] MEDS ORDERED: 0.9 % Sodium Chloride 1,000 ML ONE (11:33)
[2017-09-08] MEDS ORDERED: Scopolamine Patch 1.5 MG PATCH.TD72 TD ONE (11:56)
--- NOTE | 2017-09-08 15:10 | Discharge Summary ---
- NOTES TO OUTPATIENT PROVIDER Notes to Outpatient Provider: Mr Das presented in atrial flutter, recurrent. He was seen by cardiology. Rhythmol increased. He had cardioversion today and is in NSR. Orders not resulted at time of discharge: Pending orders 09/06/17 21:20 EKG [ECG 12 lead ECG] [ECG] Stat 09/09/17 06:00 ECG 12 lead ECG [ECG] AM 0600 Date of Encounter: 09/08/17 Time of Encounter: 14:00 - Discharge Diagnosis (1) Atrial flutter Priority: Primary Status: Resolved Qualifiers: Atrial flutter type: typical Qualified Code(s): I48.3 - Typical atrial flutter (2) Hyperlipidemia Priority: Secondary Status: Chronic Qualifiers: Hyperlipidemia type: mixed hyperlipidemia Qualified Code(s): E78.2 - Mixed hyperlipidemia (3) HTN (hypertension) Priority: Secondary Status: Chronic Qualifiers: Hypertension type: essential hypertension Qualified Code(s): I10 - Essential (primary) hypertension (4) Tobacco abuse Priority: Secondary Status: Chronic Hospital course: Mr. Das is a 42 year old male with hx of a flutter presented to ED with acute rapid atrial flutter. He was subsequently admitted. Mr Das was admitted to [facility]. He was seen by cardiology and his Rhythmol dose was increased. He persisted in rapid a flutter. Today he underwent cardioversion and is now in NSR. He feels well. He is afebrile and ready for discharge home. Discharge discussed with: patient, family - Time Spent with Patient Total time spent providing and/or coordinating discharge services: 27min - Discharge Medications Prescriptions: Propafenone [Rhythmol] 225 mg PO Q8HR #90 tablet Metoprolol [Lopressor] 25 mg PO BID #60 tablet Home Medications: Aspirin 81 mg PO DAILY #30 tab.chew 02/24/17 [Rx] Rivaroxaban [Xarelto] 20 mg PO DAILY #30 tablet 03/12/17 [Rx] Docusate [Colace] 100 mg PO BID 04/25/17 [History] Fenofibrate [Tricor] 54 mg PO DAILY 08/22/17 [History] Garlic [Daily Garlic Once-A-Day] 400 mg PO DAILY 09/07/17 [History] Magnesium Oxide [Magnesium] 400 mg PO DAILY 09/07/17 [History] Psyllium Husk [Metamucil] 17 gm PO DAILY PRN 09/07/17 [History] Diltiazem CD (24hr) [Cardizem CD] 360 mg PO DAILY cap.er.24h 09/08/17 [Rx] Metoprolol [Lopressor] 25 mg PO BID #60 tablet 09/08/17 [Rx] Propafenone [Rhythmol] 225 mg PO Q8HR #90 tablet 09/08/17 [Rx] Allergies/Adverse Reactions: 3 Allergy/AdvReac Type Severity Reaction Status Date / Time No Known Allergies Allergy Verified 09/07/17 08:37 Date of admission: 09/06/17 21:57 Primary care physician: Blanca Meneses MD Consults: 09/06/17 22:02 Consult to Cardiology [CONS] Stat Comment: Consulting Provider: Cardiology Nitza Reason for Consult: A. fib with RVR Call Completed: Yes Discharging clinician: Juan Wilde Anticipated date of discharge: 09/08/17 - Constitutional Vitals: Temp Pulse Resp BP Pulse Ox 98.4 F 67 14 110/80 99 09/08/17 12:00 09/08/17 12:00 09/08/17 12:00 09/08/17 12:00 09/08/17 11:47 General appearance: Present: A&O X 3, pleasant, answers questions appropriately - Head Head exam: Present: normocephalic - Eye Eye exam: Present: EOMI, conjuntiva pink - ENT ENT exam: Present: mucous membranes dry - Respiratory Respiratory exam: Present: CTAB. Absent: rhonchi, wheezes - Cardiovascular Cardiovascular exam: Present: RRR. Absent: tachycardia - GI/Abdominal GI/Abdominal exam: Present: soft. Absent: tenderness - Extremities Exam Extremities exam: Present: warm. Absent: tenderness - Neurological Exam Neurological exam: Present: alert, oriented X3 - Skin Skin exam: Present: dry, warm - Patient Status Disposition: Home, Self-Care Condition: Good Functional capacity at discharge: independent ambulation Overall status at discharge: patient is progressing back to baseline - Discharge Instructions Instructions: Metoprolol (By mouth), Propafenone (By mouth), Atrial Flutter (DC ), Atrial Fibrillation (DC), Cardioversion (DC), Cardioversion (GEN), Chronic Hypertension (DC) Follow Up With: Blanca Meneses MD [Primary Care Provider] - 09/15/17 6:00 pm Alec Dinero DO [Partnered Physician] - (the office will call you with an appointment if they have not called you by next monday call then.) - Diet and Activity Activity: increase activity as tolerated Diet: advance to your usual diet
[2017-09-08 15:27] VITALS: BP 118/77
[2017-09-08] MEDS ORDERED: Diltiazem CD (24hr) 180 MG CAPSULE PO SCH (16:30)
--- NOTE | 2017-09-08 17:10 | Event Note ---
Date of Encounter: 09/08/17 Time of Encounter: 17:07 - Cardiology Event Note Patient is s/p successful DCCV. Currenlty SR, HR 70s. Discussed with Dr.John Thomson, recommend continuing cardizem CD 360mg and lopressor 25mg BID. Patient is now on increased flecanide dose of 225mg Q8 hours. Patient has received 4 total doses of increased flecanide, Dr. Thomson states ok for discharge if ECG is stable. Recommend ECG prior to discharge. Patient is ok for discharge if on repeat ECG is SR and QRS is less than 109ms. Cardiology will sign off and will follow in outpatient setting. FOllow up set.
--- NOTE | 2017-09-08 17:44 | Electrocardiograph Report ---
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
--- NOTE | 2017-09-08 17:47 | Electrocardiograph Report ---
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
--- NOTE | 2017-09-11 13:22 | Electrocardiograph Report ---
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
== END 2017-09-08 18:42 | disposition home or self-care (01) | DRG 201 ==
LOC: 2NENU → SUATTDRO 21:57
PROVIDERS: ADMIT General Practice; ATTEND Internal Medicine